=== PATIENT | female | born 1965 | race Caucasian/White ===

== ENCOUNTER 2022-09-12 08:28 | Outpatient (CLI) | payer BC ==
[2022-09-12] MEDS ORDERED: Iopamidol 370 76% 100 ML VIAL ONE (15:58)
== END 2022-09-12 08:29 | disposition home or self-care (01) ==
LOC: RAD 08:28
PROVIDERS: ATTEND Student in an Organized Health Care Education/Training Program
DX: J38.7 Other diseases of larynx (principal); M47.892 Other spondylosis, cervical region
CPT/HCPCS: 70491; 74220; 82565; Q9967